=== PATIENT | male | born 1990 | race Caucasian/White ===

== ENCOUNTER 2017-03-30 18:50 | Emergency (ER) | payer OTHER ==
[2017-03-30 18:58] VITALS: O2SAT 96
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
[2017-03-30 21:07] VITALS: BP 116/78; PULSE 731; RESP 8; TEMP 97.7
== END 2017-03-30 20:58 | disposition home or self-care (01) ==
DX: S06.0X0A Concussion without loss of consciousness, initial encounter (principal); V49.3XXA Car occupant (driver) (passenger) injured in unspecified nontraffic accident, initial encounter; Y92.410 Unspecified street and highway as the place of occurrence of the external cause